=== PATIENT | female | born 1975 | race Caucasian/White ===

== ENCOUNTER 2018-02-27 08:53 | Day surgery (SDC) | payer OTHER | END 2018-02-27 14:40 | disposition home or self-care (01) | LOC: AMB-ENDOS 08:53 | DX: D12.3 Benign neoplasm of transverse colon (principal); D12.8 Benign neoplasm of rectum; K57.32 Diverticulitis of large intestine without perforation or abscess without bleeding; K64.8 Other hemorrhoids ==